=== PATIENT | female | born 1955 | race Caucasian/White ===

== ENCOUNTER → 2016-03-15 | Outpatient (CLI) | payer BC ==
[~2016-03-15] MED LIST: BUPROPRION; FLEXERIL10 MG PO; FOSINOPRIL10 MG PO; NORCO 325 MG-7.1 TAB PO; PERCOCET 325 MG1 TA2 PO; PHENERGAN 25 TA25 MG PO; PROPRANOLOL10 MG PO; SKELAXIN 4400 MG/TAB PO
== END ==
LOC: MC.RAD 11:18
DX: Z12.31 Encounter for screening mammogram for malignant neoplasm of breast (principal)

== ENCOUNTER → 2017-01-24 | Outpatient (CLI) | payer BC | LOC: MC.RAD 13:36 | DX: N63.13 Unspecified lump in the right breast, lower outer quadrant (principal) ==

== ENCOUNTER 2018-03-29 05:44 | Day surgery (SDC) | payer BC ==
[~2018-03-29] VITALS: Ht 170.2 cm; Wt 88.0 kg
[~2018-03-29 05:44] MED LIST changes: +BUSPAR5 MG PO; +DITROPAN XL10 MG PO; +ESTRACE 1MG1 MG/TAB PO; +LIPITOR 10MG10 MG PO; +MICROZIDE12.5 MG PO; +MONOPRIL10 MG PO; +PRAVACHOL10 MG PO; +WELLBUTRIN 75MG75 MG PO
[2018-03-29] MEDS ORDERED: ASPIRIN 81M81 MG/TA2 PO (06:08)
[2018-03-29] MEDS ORDERED: MASON NATURAL2000 IU PO (06:11)
[2018-03-29] MEDS ORDERED: FLONASEALLERGY NS (06:11)
[2018-03-29] MEDS ORDERED: ZANTAC 150MG T150 MG PO (06:12)
[2018-03-29] MEDS ORDERED: PAXIL 10MG10 MG PO (06:12)
[2018-03-29] MEDS ORDERED: MULTI VITAMINS1 TAB PO (06:12)
[2018-03-29] MEDS ORDERED: CLARITIN 1010 MG/TAB PO (06:12)
[2018-03-29 06:13] VITALS: BP 106/74; PULSE 70; TEMP 98.1
--- NOTE | 2018-03-29 07:21 | NUR ---
Patient to OR at this time.
[2018-03-29] MEDS ORDERED: NORCO 325 MG-51 TAB PO (08:33)
[2018-03-29 09:00] VITALS: BP 113/62; PULSE 64; TEMP 97.1
--- NOTE | 2018-03-29 09:00 | NUR ---
Patient arrives to [facility] [place] [address] via cart, accompanied by COMPUTED TOMOGRAPHY TECHNICIAN Luz. She is alert and oriented. She denies any pain or nausea. Monitoring applied for post-operative vitals. VSS and WNL on 2L nasal cannula. Patient's spouse is brought to the bedside. Patient has 3 operative sites to the abdomen, covered by clean, dry, intact bandaids. Her abdomen is soft, mildly distended, nontender. Offered and receives water to drink. Call light in reach. Will continue to monitor.
[2018-03-29 09:15] VITALS: BP 115/73; PULSE 62
--- NOTE | 2018-03-29 09:15 | NUR ---
VSS and WNL on room air. Patient resting comfortably in room. Denies any pain, nausea, or need at this time. Offered and receives jello. Tolerating water well. Oxygen titrated to room air at this time.
[2018-03-29 09:30] VITALS: BP 120/77; PULSE 64
--- NOTE | 2018-03-29 09:30 | NUR ---
Patient denies any pain, nausea, or need. VSS and WNL on room air. Dressings remain clean, dry, intact.
--- NOTE | 2018-03-29 09:39 | NUR ---
Patient assisted to restroom at this time.
--- NOTE | 2018-03-29 09:44 | NUR ---
Patient voids and returns to room.
[2018-03-29 09:45] VITALS: BP 118/78; PULSE 68
--- NOTE | 2018-03-29 09:45 | NUR ---
VSS and WNL on room air.
[2018-03-29 10:00] VITALS: BP 114/75; PULSE 69
--- NOTE | 2018-03-29 10:00 | NUR ---
VSS and WNL on room air. Patient denies any pain, nausea, or need. Discharge criteria has been met. Discharge instructions discussed, denies any questions, and verbalizes understanding.
--- NOTE | 2018-03-29 10:10 | NUR ---
PIV removed with catheter intact and hemostasis achieved. Patient changing to clothing independently.
--- NOTE | 2018-03-29 10:24 | NUR ---
Patient escorted to exit via wheelchair. Discharged to home with ride in private vehicle at 1024.
== END 2018-03-29 10:24 | disposition home or self-care (01) ==
LOC: SDCO 05:44
DX: K80.10 Calculus of gallbladder with chronic cholecystitis without obstruction (principal); K92.1 Melena; I10 Essential (primary) hypertension; Z79.899 Other long term (current) drug therapy; Z79.82 Long term (current) use of aspirin; Z87.442 Personal history of urinary calculi; E78.5 Hyperlipidemia, unspecified; J42 Unspecified chronic bronchitis; F32.9 Major depressive disorder, single episode, unspecified; F41.9 Anxiety disorder, unspecified
CPT/HCPCS: J0690; J1100; J1885; J2405; J2704; J2710; J3010; J7120

== ENCOUNTER → 2018-06-04 | Outpatient (CLI) | payer BC ==
[~2018-06-04] MED LIST changes: +ASPIRIN 81M81 MG/TA2 PO; +CLARITIN 1010 MG/TAB PO; +FLONASEALLERGY NS; +MASON NATURAL2000 IU PO; +MULTI VITAMINS1 TAB PO; +NORCO 325 MG-51 TAB PO; +PAXIL 10MG10 MG PO; +ZANTAC 150MG T150 MG PO
== END ==
LOC: MC.RAD 11:30
DX: Z12.31 Encounter for screening mammogram for malignant neoplasm of breast (principal)

== ENCOUNTER → 2018-06-04 | Outpatient (CLI) | payer BC | LOC: COL.RAD 13:00 | DX: R91.8 Other nonspecific abnormal finding of lung field (principal) ==

== ENCOUNTER 2020-01-03 12:25 | Emergency (ER) | payer BC ==
[~2020-01-03] VITALS: Ht 170.2 cm; Wt 83.9 kg
[2020-01-03 12:40] VITALS: TEMP 98.5
[2020-01-03] MEDS ORDERED: VOLTAREN 75 DR75 MG PO (13:28)
[2020-01-03 13:49] VITALS: BP 137/83; PULSE 53
== END 2020-01-03 13:54 | disposition home or self-care (01) ==
LOC: COL.ER 12:25
DX: S93.402A Sprain of unspecified ligament of left ankle, initial encounter (principal); S90.122A Contusion of left lesser toe(s) without damage to nail, initial encounter; I10 Essential (primary) hypertension; Z88.1 Allergy status to other antibiotic agents; Z79.82 Long term (current) use of aspirin; Z79.51 Long term (current) use of inhaled steroids; W01.0XXA Fall on same level from slipping, tripping and stumbling without subsequent striking against object, initial encounter; Y92.009 Unspecified place in unspecified non-institutional (private) residence as the place of occurrence of the external cause

== ENCOUNTER 2023-05-03 15:00 | Outpatient (RCR) | payer MEDICARE, OTHER ==
[~2023-05-03 15:00] MED LIST changes: +FLEXERIL 1010 MG/TAB PO; +VOLTAREN 75 DR75 MG PO
== END 2023-05-06 | disposition home or self-care (01) ==
LOC: WSPT
DX: M17.0 Bilateral primary osteoarthritis of knee (principal); M41.55 Other secondary scoliosis, thoracolumbar region